=== PATIENT | female | born 1960 | race Caucasian/White ===

== ENCOUNTER 2024-07-04 15:34 | Emergency (ER) | payer BC | END 2024-07-04 16:38 | disposition home or self-care (01) | LOC: JP.ED 15:34 | DX: S76.012A Strain of muscle, fascia and tendon of left hip, initial encounter (principal); I10 Essential (primary) hypertension; E78.00 Pure hypercholesterolemia, unspecified; F17.210 Nicotine dependence, cigarettes, uncomplicated; Z86.16 Personal history of COVID-19; Z79.899 Other long term (current) drug therapy; Z88.0 Allergy status to penicillin; Z88.8 Allergy status to other drugs, medicaments and biological substances; X58.XXXA Exposure to other specified factors, initial encounter | CPT/HCPCS: 99283 ==